=== PATIENT | male | born 1995 | race American Indian/Alaskan Native ===

== ENCOUNTER 2017-07-04 15:59 | Emergency (ER) | payer MEDICAID ==
[2017-07-04 16:11] VITALS: BP 129/80
--- NOTE | 2017-07-04 16:55 | CR ---
Clinical history: 21-year-old male pain left pinky (small) finger. Interpretation: 3 views left finger confirm soft tissue swelling around the DIP joint and apparent flexion deformity (extensor tendon injury?). No foreign body, inflammatory periostitis, underlying fracture or joint dislocation left small finger . Fourth and fifth metacarpal unremarkable and the adjacent left ring finger is normal.
--- NOTE | 2017-07-04 17:39 | EDM.PDOC ---
ED HPI GENERAL MEDICAL PROBLEM - General Chief Complaint: Upper Extremity Injury/Pain Stated Complaint: LEFT PINKY Time Seen by Provider: 07/04/17 16:45 Source of Information: Reports: Patient History Limitations: Reports: No Limitations - History of Present Illness INITIAL COMMENTS - FREE TEXT/NARRATIVE: Patient presents to ER with c/o painful, deformed left pinky finger. He states he was practicing basketball on Tuesday when he jammed the finger on the rim of the hoop. He states he thought the swelling would go down and the finger would get better, but it has gotten worse and he is unable to bend the finger at the 2nd joint. The finger is pointed downward at the distal joint. Onset Date: 07/02/17 Left 5-Little finger Pain Score (Numeric/FACES): 6 - Related Data Allergies Allergy/AdvReac Type Severity Reaction Status Date / Time No Known Allergies Allergy Verified 07/04/17 16:05 Past Medical History - Past Health History Medical/Surgical History: Denies Medical/Surgical History Social & Family History - Family History Family Medical History: Noncontributory - Tobacco Use Smoking Status *Q: Never Smoker Second Hand Smoke Exposure: Yes - Caffeine Use Caffeine Use: Reports: Soda Other Caffeine Use: daily - Recreational Drug Use Recreational Drug Use: No Recreational Drug Type: Reports: Marijuana/Hashish Review of Systems - Review of Systems Review Of Systems: ROS reveals no pertinent complaints other than HPI. ED EXAM, GENERAL - Physical Exam Exam: See Below Exam Limited By: No Limitations General Appearance: Alert, WD/WN, No Apparent Distress Eye Exam: Bilateral Eye: Normal Inspection Ears: Normal External Exam Nose: Normal Inspection Throat/Mouth: Normal Inspection, Normal Voice, No Airway Compromise Head: Atraumatic, Normocephalic Neck: Normal Inspection, Supple, Non-Tender, Full Range of Motion Respiratory/Chest: No Respiratory Distress, Lungs Clear, Normal Breath Sounds, No Accessory Muscle Use, Chest Non-Tender Cardiovascular: Normal Peripheral Pulses Peripheral Pulses: 2+: Radial (L), Radial (R) GI/Abdominal: Normal Bowel Sounds, Soft, Non-Tender (Male) Exam: Deferred Rectal (Males) Exam: Deferred Back Exam: Normal Inspection, Full Range of Motion Extremities: Normal Inspection, Normal Range of Motion, Non-Tender, No Pedal Edema, Normal Capillary Refill, Other (deformity of left pinky finger) Neurological: Alert, Oriented, Normal Cognition, Normal Gait, No Motor/Sensory Deficits Psychiatric: Normal Affect, Normal Mood Skin Exam: Warm, Dry, Intact, Normal Color, No Rash Lymphatic: No Adenopathy ED TRAUMA EXTREMITY PROCEDURES - Splinting Left 5th Digit Splint Site: left pinky finger Pre-Procedure NV Status: Normal Post-Procedure NV Status: Normal Splint Material: Aluminum-Foam Splint Design: Extensor Applied & Form Fitted By: Provider Provider Post-Splint Application NV Check: NV Status Normal, Good Position Complications: No Course - Vital Signs Last Recorded V/S: Last Vital Signs Temp 99.4 F 07/04/17 16:10 Pulse 64 07/04/17 16:10 Resp 18 07/04/17 16:10 BP 129/80 07/04/17 16:10 Pulse Ox 100 07/04/17 16:10 Departure - Departure Time of Disposition: 17:35 Disposition: Home, Self-Care 01 Condition: Good Clinical Impression: Injury of extensor tendon of left hand Qualifiers: Encounter type: initial encounter Qualified Code(s): S66.902A - Unspecified injury of unspecified muscle, fascia and tendon at wrist and hand level, left hand, initial encounter - Discharge Information Instructions: Tendon Injury, Finger Sprain, [id number] Forms: ED Department Discharge Additional Instructions: Follow up with hand specialist in [facility]. Call within 1 week to schedule appointment. Wear splint to the finger for 6 weeks day and night. May remove for bathing. After 6 weeks, use only at night for 2-3 more weeks. At this point you may begin doing some movement exercises.
== END 2017-07-04 17:51 | disposition home or self-care (01) ==
LOC: DL.ED 15:59
DX: S66.307A Unspecified injury of extensor muscle, fascia and tendon of left little finger at wrist and hand level, initial encounter (principal); W23.1XXA Caught, crushed, jammed, or pinched between stationary objects, initial encounter
CPT/HCPCS: 73140; 99283; L3999

== ENCOUNTER 2019-02-22 16:45 | Emergency (ER) | payer SELFPAY ==
[2019-02-22] MEDS ORDERED: Lidocaine 1% 30 ML SDV INJECT ONE ×2 (16:46→17:25)
[2019-02-22] MEDS ORDERED: Bacitracin Oint 1 GM U/D Packet TOP ONE ×2 (16:46→17:25)
[2019-02-22] MEDS ORDERED: Iopamidol 612 MG/ML 100 ML Bottle IVPUSH ONE (16:49)
[2019-02-22 16:58] VITALS: BP 166/90
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
[2019-02-22 17:23] LABS: ANION GAP 18.3; CHLORIDE,CL 103 mmol/L (101-111); SODIUM,NA 138 mmol/L (135-145)
[2019-02-22] MEDS ORDERED: Diphtheria,Pertussis(Acell),Tetanus Vaccine 0.5 ML SDV IM ONE (17:25)
== END 2019-02-22 19:04 | disposition home or self-care (01) ==
LOC: DL.ED 16:45
DX: S21.112A Laceration without foreign body of left front wall of thorax without penetration into thoracic cavity, initial encounter (principal); S21.219A Laceration without foreign body of unspecified back wall of thorax without penetration into thoracic cavity, initial encounter; W45.8XXA Other foreign body or object entering through skin, initial encounter; Z23 Encounter for immunization
CPT/HCPCS: 12001; 36415; 71260; 74177; 80053; 80305; 81001; 85025; 90471; 90715; 99285; J2001; Q9967; 12002

== ENCOUNTER 2019-10-08 04:47 | Emergency (ER) | payer OTHER ==
[2019-10-08 04:58] VITALS: BP 117/101; PULSE 99
== END 2019-10-08 04:55 ==
LOC: DL.ED 04:47
DX: F10.10 Alcohol abuse, uncomplicated (principal); Z53.21 Procedure and treatment not carried out due to patient leaving prior to being seen by health care provider

== ENCOUNTER 2020-02-09 23:24 | Emergency (ER) | payer OTHER ==
[2020-02-09] MEDS ORDERED: Diphtheria,Pertussis(Acell),Tetanus Vaccine 0.5 ML SDV IM ONE (23:31)
[2020-02-09] MEDS ORDERED: Lidocaine 1% 30 ML SDV INJECT ONE (23:31)
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
[2020-02-09 23:37] VITALS: BP 143/95; PULSE 74
[2020-02-09] MEDS ORDERED: Cephalexin 500 MG Cap PO ONE (23:53)
== END 2020-02-09 23:59 | disposition home or self-care (01) ==
LOC: DL.ED 23:24
DX: S80.851A Superficial foreign body, right lower leg, initial encounter (principal); Z23 Encounter for immunization; W45.8XXA Other foreign body or object entering through skin, initial encounter
CPT/HCPCS: 10120; 90471; 90715; 99283; A9270; J2001

== ENCOUNTER 2020-02-10 14:34 | Emergency (ER) | payer OTHER ==
[2020-02-10 15:41] VITALS: BP 134/90; PULSE 71
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
[2020-02-10] MEDS ORDERED: cefTRIAXone 1 GM, Lidocaine 1% 2.1 ML IM ONE ×2 (16:04)
[2020-02-10] MEDS ORDERED: Azithromycin 250 MG Tab PO ONE (16:05)
[2020-02-12 11:46] LABS: C.TRACHOMATIS BY TMA Positive (Negative); N.GONORRHOEAE BY TMA Positive (Negative)
== END 2020-02-10 16:25 | disposition home or self-care (01) ==
LOC: DL.ED 14:34
DX: A64 Unspecified sexually transmitted disease (principal); R59.0 Localized enlarged lymph nodes
CPT/HCPCS: 80305; 81003; 87491; 87591; 96372; 99283; A9270; J0696; J2001

== ENCOUNTER 2021-03-27 21:32 | Emergency (ER) | payer OTHER ==
[2021-03-27 22:00] VITALS: BP 124/59; PULSE 106
[2021-03-27] MEDS ORDERED: Amoxicillin/Clavulanate K 875-125 MG Tab PO ONE (22:07)
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
== END 2021-03-27 22:16 | disposition home or self-care (01) ==
LOC: DL.ED 21:32
DX: S60.371A Other superficial bite of right thumb, initial encounter (principal); S50.871A Other superficial bite of right forearm, initial encounter; W50.3XXA Accidental bite by another person, initial encounter
CPT/HCPCS: 99282; 99283; A9270-GY

== ENCOUNTER 2021-04-29 22:25 | Emergency (ER) | payer OTHER ==
[2021-04-29 22:35] VITALS: BP 145/91; PULSE 78
[2021-04-29] MEDS ORDERED: Bacitracin Oint 1 GM U/D Packet TOP ONE (22:43)
[2021-04-29] MEDS ORDERED: Lidocaine 1% 30 ML SDV INJECT ONE (22:43)
[2021-04-29] MEDS ORDERED: Cephalexin 500 MG Cap PO ONE (22:44)
--- NOTE | 2021-04-29 23:52 | EDM.PDOC ---
ED HPI GENERAL MEDICAL PROBLEM - General Chief Complaint: Bite:Animal, Insect Time Seen by Provider: 04/29/21 22:45 Source of Information: Reports: Patient, EMS, EMS Notes Reviewed, RN, RN Notes Reviewed History Limitations: Reports: No Limitations - History of Present Illness INITIAL COMMENTS - FREE TEXT/NARRATIVE: Patient is a 25-year-old male who presents to ER per [facility] with complaint of dog bite to the left arm. Patient's own dog attacked and bit him causing lacerations to the left arm. Patient states dog is not up-to-date on vaccinations for the past couple years. PD on scene was going to have game and fish/wildlife, get the dog. Dog will be quarantined and if becomes aggressive again will be put down. Patient states he is up-to-date on his tetanus vaccination. Patient complained initially to numbness and tingling to the fingers of the left hand, which has since resolved. Onset: Today, Sudden - Related Data Allergies Allergy/AdvReac Type Severity Reaction Status Date / Time No Known Allergies Allergy Verified 04/29/21 22:31 Home Meds: Home Meds . [No Known Home Meds] 04/19/19 [History] Past Medical History - Past Health History Medical/Surgical History: Denies Medical/Surgical History HEENT History: Reports: None Cardiovascular History: Reports: None Respiratory History: Reports: None Gastrointestinal History: Reports: None Genitourinary History: Reports: None Musculoskeletal History: Reports: None Neurological History: Reports: None Psychiatric History: Reports: None Endocrine/Metabolic History: Reports: None Hematologic History: Reports: None Immunologic History: Reports: None Oncologic (Cancer) History: Reports: None Dermatologic History: Reports: None - Infectious Disease History Infectious Disease History: Reports: None - Past Surgical History Head Surgeries/Procedures: Reports: None Social & Family History - Family History Family Medical History: No Pertinent Family History - Tobacco Use Tobacco Use Status *Q: Light Tobacco User Years of Tobacco use: 5 Packs/Tins Daily: 0.1 - Caffeine Use Caffeine Use: Reports: Energy Drinks Other Caffeine Use: daily - Recreational Drug Use Recreational Drug Use: No - Living Situation & Occupation Living situation: Reports: with Family ED ROS GENERAL - Review of Systems Review Of Systems: Comprehensive ROS is negative, except as noted in HPI. ED EXAM, ANIMAL BITE - Physical Exam Exam: See Below Exam Limited By: No Limitations General Appearance: Alert, WD/WN, No Apparent Distress Eye Exam: Bilateral Eye: EOMI, Normal Inspection Ears: Normal External Exam, Hearing Grossly Normal Nose: Normal Inspection Throat/Mouth: Normal Inspection, Normal Voice, No Airway Compromise Head: Atraumatic, Normocephalic Neck: Normal Inspection, Supple, Non-Tender, Full Range of Motion Respiratory/Chest: No Respiratory Distress, Lungs Clear, Normal Breath Sounds, No Accessory Muscle Use, Chest Non-Tender Cardiovascular: Normal Peripheral Pulses, Regular Rate, Rhythm, No Edema, No Gallop, No JVD, No Murmur, No Rub Peripheral Pulses: 2+: Radial (L), Radial (R) GI/Abdominal: Normal Bowel Sounds, Soft, Non-Tender (Male) Exam: Deferred Rectal (Males) Exam: Deferred Back Exam: Normal Inspection, Full Range of Motion, NT Extremities: Normal Range of Motion, No Pedal Edema, Normal Capillary Refill, Arm Pain (dog bite/laceration to left lateral and dorsal arm) Neurological: Alert, Oriented, Normal Cognition, Normal Gait, No Motor/Sensory Deficits Psychiatric: Normal Affect, Normal Mood Skin Exam: Normal Color, Warm/Dry, Other (2 lacerations to the left arm, dorsal and lateral aspects of forearm) Lymphadenopathy: Bilateral: No Adenopathy Lymphatic: No Adenopathy ED ANIMAL BITE PROCEDURES - Laceration/Wound Repair Left Dorsal Arm Lac/Wound Length In cm: 3 Appearance: Subcutaneous Anesthetic Type: Local Local Anesthesia - Lidocaine (Xylocaine): 1% Plain Local Anesthetic Volume: 5cc Skin Prep: Chlorhexidine (Hibiciens) Exploration/Debridement/Repair: Wound Explored, In a Bloodless Field, Explored to Base, No Foreign Material Found Closed With: Sutures Suture Size: 4-0 # of Sutures: 4 Suture Type: Nylon, Interrupted Drain Placement: No Sterile Dressing Applied: Nurse Tetanus Status Addressed: Yes Complications: No Left Lateral Arm Lac/Wound Length In cm: 3 Appearance: Subcutaneous Distal NVT: Neuro & Vascular Intact Anesthetic Type: Local Local Anesthesia - Lidocaine (Xylocaine): 1% Plain Local Anesthetic Volume: 3cc Skin Prep: Chlorhexidine (Hibiciens) Exploration/Debridement/Repair: Wound Explored, In a Bloodless Field, Explored to Base Closed With: Sutures Suture Size: 4-0 # of Sutures: 3 Suture Type: Nylon, Interrupted Drain Placement: No Sterile Dressing Applied: Nurse Tetanus Status Addressed: Yes Complications: No Course - Vital Signs Last Recorded V/S: Last Vital Signs Temp 97.4 F 04/29/21 22:32 Pulse 78 04/29/21 22:32 Resp 18 04/29/21 22:32 BP 145/91 H 04/29/21 22:32 Pulse Ox 99 04/29/21 22:32 - Orders/Labs/Meds Meds: Medications Discontinued Medications Generic Name Dose Route Start Last Admin Trade Name Nisha PRN Reason Stop Dose Admin Bacitracin 1 dose 04/29/21 22:43 04/29/21 22:53 Bacitracin Oint 1 Gm U/D Packet TOP 04/29/21 22:44 1 dose ONETIME ONE Administration Cephalexin 500 mg 04/29/21 22:44 04/29/21 22:53 Cephalexin 500 Mg Cap PO 04/29/21 22:45 500 mg ONETIME ONE Administration Lidocaine HCl 30 ml 04/29/21 22:43 04/29/21 22:53 Lidocaine 1% 30 Ml Sdv INJECT 04/29/21 22:44 30 ml ONETIME ONE Administration Departure - Departure Time of Disposition: 23:53 Disposition: Home, Self-Care 01 Condition: Good Clinical Impression: Laceration Dog bite of arm Qualifiers: Encounter type: initial encounter Laterality: left Qualified Code(s): S41.152A - Open bite of left upper arm, initial encounter - Discharge Information *PRESCRIPTION DRUG MONITORING PROGRAM REVIEWED*: No *COPY OF PRESCRIPTION DRUG MONITORING REPORT IN PATIENT SHERLY: No Instructions: Animal Bite, Adult, [id number], Laceration Care, Adult, [id number] Forms: ED Department Discharge Additional Instructions: Keep area clean and dry Have sutures removed in 7-10 days RX: Cephalexin 500mg orally twice daily for 7 days Sepsis Event Note (ED) - Focused Exam Vital Signs: Vital Signs Temp Pulse Resp BP Pulse Ox 04/29/21 22:32 97.4 F 78 18 145/91 H 99
== END 2021-04-30 00:08 | disposition home or self-care (01) ==
LOC: DL.ED 22:25
DX: S51.852A Open bite of left forearm, initial encounter (principal); W54.0XXA Bitten by dog, initial encounter; Z72.0 Tobacco use
CPT/HCPCS: 12002; 99283; 99283-25; A9270-GY

== ENCOUNTER 2022-03-09 14:54 | Emergency (ER) | payer OTHER ==
[2022-03-09 15:05] VITALS: BP 150/102; PULSE 106
[2022-03-09] MEDS ORDERED: Sodium Chloride 0.9% 10 ML Syringe FLUSH PRN (15:39)
[2022-03-09 16:09] LABS: AMPHETAMINES,URINE NEGATIVE (NEGATIVE); BARBITURATES,URINE NEGATIVE (NEGATIVE); BENZODIAZEPINE,URINE NEGATIVE (NEGATIVE); MDMA (ECSTASY), URINE NEGATIVE (NEGATIVE); METHADONE,URINE NEGATIVE (NEGATIVE); METHAMPHETAMINES,URINE NEGATIVE (NEGATIVE); OPIATES,URINE NEGATIVE (NEGATIVE); OXYCODONE,URINE NEGATIVE (NEGATIVE); PHENCYCLIDINE,URINE NEGATIVE (NEGATIVE); TCA,URINE NEGATIVE (NEGATIVE)
== END 2022-03-09 17:02 | disposition home or self-care (01) ==
LOC: DL.ED 14:54
DX: S62.326A Displaced fracture of shaft of fifth metacarpal bone, right hand, initial encounter for closed fracture (principal); F10.129 Alcohol abuse with intoxication, unspecified; F17.210 Nicotine dependence, cigarettes, uncomplicated; Y90.7 Blood alcohol level of 200-239 mg/100 ml; W22.09XA Striking against other stationary object, initial encounter
CPT/HCPCS: 29125; 36415; 73130; 80305; 80307; 99283; 99284; J3490